=== PATIENT | female | born 1995 | race Caucasian/White ===

== ENCOUNTER → 2018-06-21 15:33 | Outpatient (CLI) | payer BC, SELFPAY ==
[2018-06-21 15:13] VITALS: BMI 50.6
[2018-06-21 16:12] LABS: Absolute Lymphocyte Count 4.94 X10^3/ul (0.83-4.51); Absolute Neutrophil Count 7.6 X10^3/uL (2.0-7.7); Basophil# 0.06 X10^3/uL; Basophil% 0.4 % (0-1); Eosinophil# 0.08 X10^3/uL; Eosinophils% 0.6 % (0-5); Hematocrit 43.2 % (37-47); Hemoglobin 13.5 g/dl (12.0-15.0); Lymphocyte # 4.94 X10^3/ul (4.0); Lymphocyte % 36.5 % (19-41); Mean Corp Hgb Conc 31.3 g/gl (32-36); Mean Corpuscular Hgb 28.5 pg (27.0-32.0); Mean Corpuscular Volume 91.3 fL (81-99); Mean Platelet Vol. 9.8 fl (6.2-12.0); Monocyte# 0.79 X10^3/uL; Monocyte% 5.8 % (0-10); Neutrophil # 7.62 X10^3/uL (2.7-7.7); Neutrophil % 56.3 % (47-70); Platelet Count 392 K/mm3 (150-450); RBC Distribution Width CV 14.5 % (11.6-14.6); RBC Distribution Width SD 47.4 fl (35.1-43.9); Red Blood Count 4.73 M/mm3 (4.2-5.4); White Blood Count 13.5 K/mm3 (4.4-11.0)
[2018-06-21 16:15] LABS: POSITIVE COUNT NO; POSITIVE DIFFERENTIAL NO; POSITIVE MORPHOLOGY NO
[2018-06-21 16:49] LABS: Thyroid Stim Hormone (TSH) 2.41 uIU/mL (0.358-3.74)
== END ==
PROVIDERS: Referring Provider Nurse Practitioner Women's Health; Visit Provider Nurse Practitioner Women's Health
DX: N92.1 Excessive and frequent menstruation with irregular cycle (principal)
CPT/HCPCS: 36415; 84443; 85025

== ENCOUNTER → 2018-06-27 11:17 | Outpatient (CLI) | payer BC, SELFPAY ==
[2018-06-21 15:13] VITALS: BMI 50.6
--- NOTE | 2018-06-27 11:19 | US_ITS ---
STUDY: ULTRASOUND TRANSVAGINAL CLINICAL: Female, 22 years old. Heavy bleeding TECHNIQUE: Transvaginal COMPARISON: None. FINDINGS: Normal uterine size measuring 7.5 cm in maximal craniocaudal dimension. There are no myometrial masses. Normal endometrial thickness measuring 4.7 mm. There are no endometrial masses, and there is no fluid in the endometrial cavity. Normal uterine cervix. Right ovary not visualized. Normal left ovary, measuring 3.1 x 1.9 x 2.2 cm. There are multiple follicles without a dominant cyst. There is minimal free fluid. US/Transvaginal Non- IMPRESSION: No suspicious sonographic findings, right ovary not visualized. Small amount of free fluid in the cul-de-sac Electronically Signed: Logan Roberto MD at 18:20 EDT , Service support ,
--- NOTE | 2018-06-27 11:19 | US_ITS ---
STUDY: ULTRASOUND TRANSVAGINAL CLINICAL: Female, 22 years old. Heavy bleeding TECHNIQUE: Transvaginal COMPARISON: None. FINDINGS: Normal uterine size measuring 7.5 cm in maximal craniocaudal dimension. There are no myometrial masses. Normal endometrial thickness measuring 4.7 mm. There are no endometrial masses, and there is no fluid in the endometrial cavity. Normal uterine cervix. Right ovary not visualized. Normal left ovary, measuring 3.1 x 1.9 x 2.2 cm. There are multiple follicles without a dominant cyst. There is minimal free fluid. US/Pelvic (Non ) IMPRESSION: No suspicious sonographic findings, right ovary not visualized. Small amount of free fluid in the cul-de-sac Electronically Signed: Logan Roberto MD at 18:20 EDT , Service support ,
== END ==
PROVIDERS: Referring Provider Nurse Practitioner Women's Health; Visit Provider Nurse Practitioner Women's Health
DX: N92.1 Excessive and frequent menstruation with irregular cycle (principal)
CPT/HCPCS: 76830; 76856; 93976

== ENCOUNTER → 2018-07-11 | Outpatient (CLI) | payer BC, SELFPAY ==
[2018-07-11 16:07] VITALS: BMI 50.6
[2018-07-11 20:34] LABS: Chlamydia Trachomatis by PCR Negative (Negative); Neisserai gonorrhoeae by PCR Negative (Negative); Probe Check PASS; Sample Adequacy Control PASS; Specimen Processing Control PASS
[2018-07-16 14:43] LABS: HPV Reflexed? NOT INDICATED
== END | disposition home or self-care (01) ==
PROVIDERS: Referring Provider Nurse Practitioner Women's Health; Visit Provider Nurse Practitioner Women's Health
DX: Z12.4 Encounter for screening for malignant neoplasm of cervix (principal); Z11.3 Encounter for screening for infections with a predominantly sexual mode of transmission
CPT/HCPCS: 87491; 87591; 87624; 88175; G0145

== ENCOUNTER → 2020-05-05 | Outpatient (CLI) | payer BC, MEDICAID, SELFPAY ==
[2020-05-05 10:25] VITALS: BMI 49.1
[2020-05-05 13:45] LABS: Amphetamine Urine VISTA NEGATIVE (<1000 ng/mL); Barbiturate Urine VISTA NEGATIVE (< 200 ng/mL); Benzodiazepine Urine VISTA NEGATIVE (< 200 ng/mL); Cocaine Urine VISTA NEGATIVE (< 300 ng/mL); Ecstacy Urine VISTA NEGATIVE (< 500 ng/mL); Methadone Urine VISTA NEGATIVE (< 300 ng/mL); PCP Urine VISTA NEGATIVE (< 25 ng/mL); THC Urine VISTA NEGATIVE (< 50 ng/mL); Vista UDS pH Range 6
== END | disposition home or self-care (01) ==
LOC: LABSPEC 12:08
PROVIDERS: Referring Provider Obstetrics & Gynecology; Visit Provider Obstetrics & Gynecology
DX: Z34.90 Encounter for supervision of normal pregnancy, unspecified, unspecified trimester (principal)
CPT/HCPCS: 80307; 87086; 87088; 87186

== ENCOUNTER → 2020-05-26 15:10 | Outpatient (CLI) | payer BC, MEDICAID, SELFPAY ==
[2020-05-05 10:25] VITALS: BMI 49.1
[2020-05-26 16:21] LABS: NATERA MAILED SPECIMEN
[2020-05-26 16:43] LABS: Absolute Lymphocyte Count 3.74 X10^3/uL (0.83-4.51); Basophil# 0.04 X10^3/uL; Basophil% 0.3 % (0-1); Eosinophil# 0.06 X10^3/uL; Eosinophils% 0.5 % (0-5); Hematocrit 38.5 % (37-47); Hemoglobin 12.5 g/dL (12.0-15.0); Lymphocyte # 3.74 X10^3/ul (4.0); Lymphocyte % 29.4 % (19-41); Mean Corp Hgb Conc 32.5 g/dL (32-36); Mean Corpuscular Hgb 28.5 pg (27.0-32.0); Mean Corpuscular Volume 87.7 fL (81-99); Mean Platelet Vol. 10.1 fl (6.2-12.0); Monocyte# 0.84 X10^3/uL; Monocyte% 6.6 % (0-10); NRBC Flagged by Analyzer 0 % (0-5); Neutrophil # 7.99 X10^3/uL (2.7-7.7); Neutrophil % 62.8 % (47-70); Platelet Count 355 K/mm3 (150-450); RBC Distribution Width CV 13.2 % (11.6-14.6); RBC Distribution Width SD 42.7 fl (35.1-43.9); Red Blood Count 4.39 M/mm3 (4.2-5.4); White Blood Count 12.7 K/mm3 (4.4-11.0)
[2020-05-26 17:06] LABS: Glucose Challenge Gest 1H 50g 85 mg/dL (70-140)
[2020-05-27 01:10] LABS: Rapid Plasmin Reagin (RPR) NONREACTIVE (NONREACTIVE)
[2020-05-27 10:11] LABS: HIV - WCH Non-Reactive (Nonreactive); Hepatitis B Surface Antigen Non-Reactive (Nonreactive); Hepatitis C Antibody Non-Reactive (Nonreactive); Rubella IgG Reactive (Nonreactive)
== END ==
PROVIDERS: Referring Provider Obstetrics & Gynecology; Visit Provider Obstetrics & Gynecology
DX: O99.210 Obesity complicating pregnancy, unspecified trimester (principal); E66.9 Obesity, unspecified; Z3A.00 Weeks of gestation of pregnancy not specified
CPT/HCPCS: 36415; 82950; 85025; 86592; 86703; 86762; 86803; 86850; 86900; 86901; 87340

== ENCOUNTER → 2020-06-02 | Outpatient (CLI) | payer BC, MEDICAID, SELFPAY ==
[2020-06-02 11:58] VITALS: BMI 49.8
== END | disposition home or self-care (01) ==
LOC: LABSPEC 16:32
PROVIDERS: Referring Provider Obstetrics & Gynecology; Visit Provider Obstetrics & Gynecology
DX: N89.8 Other specified noninflammatory disorders of vagina (principal)
CPT/HCPCS: 87070; 87205

== ENCOUNTER → 2020-06-15 | Outpatient (CLI) | payer BC, MEDICAID, SELFPAY ==
[2020-06-15 09:36] VITALS: BMI 50.5
[2020-06-17 03:07] LABS: Chlamydia By Nucleic Acid AMP Negative (Negative)
[2020-06-17 10:06] LABS: Gonococcus By Nucleic Acid AMP Negative (Negative)
== END | disposition home or self-care (01) ==
LOC: LABSPEC 12:19
PROVIDERS: Referring Provider Nurse Practitioner Women's Health; Visit Provider Nurse Practitioner Women's Health
DX: O23.40 Unspecified infection of urinary tract in pregnancy, unspecified trimester (principal); Z3A.00 Weeks of gestation of pregnancy not specified
CPT/HCPCS: 87086; 87088; 87491; 87591

== ENCOUNTER → 2020-06-17 15:26 | Outpatient (CLI) | payer BC, MEDICAID, SELFPAY ==
[2020-06-15 09:36] VITALS: BMI 50.5
[2020-06-17 16:42] LABS: NATERA MAILED SPECIMEN
== END ==
PROVIDERS: Referring Provider Nurse Practitioner Women's Health; Visit Provider Nurse Practitioner Women's Health
DX: O23.40 Unspecified infection of urinary tract in pregnancy, unspecified trimester (principal); Z3A.00 Weeks of gestation of pregnancy not specified
CPT/HCPCS: 36415

== ENCOUNTER → 2020-09-23 15:02 | Outpatient (CLI) | payer BC, MEDICAID, SELFPAY ==
[2020-09-23 14:35] VITALS: BMI 53.1
[2020-09-23 15:41] LABS: Absolute Lymphocyte Count 2.63 X10^3/uL (0.83-4.51); Absolute Neutrophil Count 9.6 X10^3/uL (2.0-7.7); Basophil# 0.02 X10^3/uL; Basophil% 0.2 % (0-1); Eosinophil# 0.05 X10^3/uL; Eosinophils% 0.4 % (0-5); Hemoglobin 12.6 g/dL (12.0-15.0); Lymphocyte # 2.63 X10^3/ul (0.83-4.51); Lymphocyte % 20.1 % (19-41); Mean Corp Hgb Conc 32.3 g/dL (32-36); Mean Corpuscular Hgb 28.9 pg (27.0-32.0); Mean Corpuscular Volume 89.4 fL (81-99); Mean Platelet Vol. 9.4 fl (6.2-12.0); Monocyte# 0.65 X10^3/uL; NRBC Flagged by Analyzer 0 % (0-5); Neutrophil # 9.63 X10^3/uL (2.7-7.7); Neutrophil % 73.7 % (47-70); Platelet Count 341 K/mm3 (150-450); RBC Distribution Width CV 13.5 % (11.6-14.6); RBC Distribution Width SD 43.9 fl (35.1-43.9); Red Blood Count 4.36 M/mm3 (4.2-5.4); White Blood Count 13.1 K/mm3 (4.4-11.0)
[2020-09-23 16:30] LABS: Glucose Challenge Gest 1H 50g 157 mg/dL (70-140)
== END ==
PROVIDERS: Visit Provider Nurse Practitioner Women's Health
DX: Z34.92 Encounter for supervision of normal pregnancy, unspecified, second trimester (principal); Z3A.24 24 weeks gestation of pregnancy
CPT/HCPCS: 36415; 82950; 85025

== ENCOUNTER → 2020-10-07 10:02 | Outpatient (CLI) | payer BC, MEDICAID, SELFPAY ==
[2020-09-23 14:35] VITALS: BMI 53.1
[2020-10-06 11:30] VITALS: BMI 55.7
[2020-10-07 10:49] LABS: Glucose GTT-Gestation. Fasting 95 mg/dL (<105)
[2020-10-07 13:05] LABS: Glucose GTT-Gestational 2 Hr 159 mg/dL (<165)
[2020-10-07 13:12] LABS: Glucose GTT-Gestational 1 Hr 155 mg/dL (<190)
[2020-10-07 13:48] LABS: Glucose GTT-Gestational 3 Hr 128 L (<145)
== END ==
PROVIDERS: Referring Provider Nurse Practitioner Women's Health; Visit Provider Nurse Practitioner Women's Health
DX: Z13.1 Encounter for screening for diabetes mellitus (principal)
CPT/HCPCS: 36415; 82951; 82952

== ENCOUNTER → 2020-11-03 11:47 | Outpatient (CLI) | payer BC, MEDICAID, SELFPAY ==
[2020-11-03 10:59] VITALS: BMI 55.7
[2020-11-03 12:31] LABS: Absolute Lymphocyte Count 2.49 X10^3/uL (0.83-4.51); Absolute Neutrophil Count 8.3 X10^3/uL (2.0-7.7); Basophil# 0.02 X10^3/uL; Basophil% 0.2 % (0-1); Eosinophil# 0.03 X10^3/uL; Eosinophils% 0.3 % (0-5); Hematocrit 36.8 % (37-47); Hemoglobin 12.1 g/dL (12.0-15.0); Lymphocyte # 2.49 X10^3/ul (0.83-4.51); Lymphocyte % 21.9 % (19-41); Mean Corp Hgb Conc 32.9 g/dL (32-36); Mean Corpuscular Hgb 28.3 pg (27.0-32.0); Mean Platelet Vol. 10.6 fl (6.2-12.0); Monocyte# 0.52 X10^3/uL; Monocyte% 4.6 % (0-10); NRBC Flagged by Analyzer 0 % (0-5); Neutrophil # 8.26 X10^3/uL (2.7-7.7); Neutrophil % 72.6 % (47-70); Platelet Count 314 K/mm3 (150-450); RBC Distribution Width CV 13.9 % (11.6-14.6); RBC Distribution Width SD 42.9 fl (35.1-43.9); Red Blood Count 4.28 M/mm3 (4.2-5.4); White Blood Count 11.4 K/mm3 (4.4-11.0)
[2020-11-03 13:00] LABS: ALB/GLOB Ratio 0.5 RATIO (0.9-2.4); AST(SGOT) 11 U/L (15-37); Alanine Aminotransfer ALT/SGPT 15 U/L (13-56); Albumin, Serum 2.3 g/dL (3.2-5.0); Alkaline Phosphatase 129 U/L (45-117); Anion Gap 8 (5-15); BUN 6 mg/dL (7-18); BUN/Creat Ratio 13.1 RATIO (10-20); Chloride 107 mmol/L (98-107); Creatinine, Serum 0.46 mg/dL (0.55-1.02); EST Glomerular Filtration Rate 177 mL/min (>60); Est Glom Filt Rate - Afr Amer 215 mL/min (>60); Globulin 4.6 g/dL (2.2-4.2); Glucose 111 mg/dL (74-106); Protein, Total 6.9 g/dL (6.4-8.2); Sodium Level 139 mmol/L (136-145)
[2020-11-03 15:21] LABS: Protein, Urine (Random) 19.6 mg/dL (<11.9); Protein:Creat Ratio 151 mg/g CRE (0-200)
== END ==
PROVIDERS: Referring Provider Obstetrics & Gynecology; Visit Provider Obstetrics & Gynecology
DX: O16.3 Unspecified maternal hypertension, third trimester (principal); Z3A.00 Weeks of gestation of pregnancy not specified
CPT/HCPCS: 36415; 80053; 82570; 84156; 85025

== ENCOUNTER → 2020-11-10 14:10 | Outpatient (CLI) | payer BC, MEDICAID, SELFPAY ==
[2020-11-10 13:13] VITALS: BMI 55.7
[2020-11-10 15:35] LABS: Protein, Urine (Random) 23.3 mg/dL (<11.9); Protein:Creat Ratio 133 mg/g CRE (0-200)
[2020-11-10 15:48] LABS: Absolute Lymphocyte Count 3.21 X10^3/uL (0.83-4.51); Absolute Neutrophil Count 10.1 X10^3/uL (2.0-7.7); Basophil# 0.03 X10^3/uL; Basophil% 0.2 % (0-1); Eosinophil# 0.04 X10^3/uL; Eosinophils% 0.3 % (0-5); Hematocrit 37.9 % (37-47); Hemoglobin 12.2 g/dL (12.0-15.0); Lymphocyte # 3.21 X10^3/ul (0.83-4.51); Lymphocyte % 22.8 % (19-41); Mean Corp Hgb Conc 32.2 g/dL (32-36); Mean Corpuscular Volume 87.1 fL (81-99); Monocyte# 0.62 X10^3/uL; Monocyte% 4.4 % (0-10); NRBC Flagged by Analyzer 0 % (0-5); Neutrophil # 10.12 X10^3/uL (2.7-7.7); Neutrophil % 71.7 % (47-70); Platelet Count 313 K/mm3 (150-450); RBC Distribution Width CV 14.1 % (11.6-14.6); RBC Distribution Width SD 44.4 fl (35.1-43.9); Red Blood Count 4.35 M/mm3 (4.2-5.4); White Blood Count 14.1 K/mm3 (4.4-11.0)
[2020-11-10 16:21] LABS: ALB/GLOB Ratio 0.5 RATIO (0.9-2.4); AST(SGOT) 14 U/L (15-37); Alanine Aminotransfer ALT/SGPT 18 U/L (13-56); Albumin, Serum 2.4 g/dL (3.2-5.0); Alkaline Phosphatase 136 U/L (45-117); Anion Gap 7 (5-15); BUN 8 mg/dL (7-18); BUN/Creat Ratio 18.4 RATIO (10-20); Calcium,Total 9.3 mg/dL (8.5-10.1); Chloride 106 mmol/L (98-107); Creatinine, Serum 0.43 mg/dL (0.55-1.02); EST Glomerular Filtration Rate 189 mL/min (>60); Est Glom Filt Rate - Afr Amer 229 mL/min (>60); Globulin 4.7 g/dL (2.2-4.2); Glucose 87 mg/dL (74-106); Potassium 4.1 mmol/L (3.5-5.1); Protein, Total 7.1 g/dL (6.4-8.2); Sodium Level 137 mmol/L (136-145)
== END ==
PROVIDERS: Referring Provider Nurse Practitioner Women's Health; Visit Provider Nurse Practitioner Women's Health
DX: O16.3 Unspecified maternal hypertension, third trimester (principal); Z3A.00 Weeks of gestation of pregnancy not specified
CPT/HCPCS: 36415; 80053; 82570; 84156; 85025

== ENCOUNTER → 2020-11-17 | Outpatient (CLI) | payer BC, MEDICAID, SELFPAY ==
[2020-11-17 11:28] VITALS: BMI 55.7
== END | disposition home or self-care (01) ==
PROVIDERS: Visit Provider Obstetrics & Gynecology
DX: Z34.02 Encounter for supervision of normal first pregnancy, second trimester (principal)
CPT/HCPCS: 87081

== ENCOUNTER 2020-11-24 12:05 | Outpatient (CLI) | payer BC, MEDICAID, SELFPAY ==
[2020-11-24 12:17] VITALS: BMI 57.2
[2020-11-24 12:24] VITALS: BP 129/77; PULSE 90; TEMP 37.4
[2020-11-24 12:42] VITALS: BP 138/72; PULSE 92
[2020-11-24 12:54] VITALS: BP 149/72; PULSE 104
[2020-11-24 12:55] LABS: Hematocrit 35.5 % (37-47); Hemoglobin 11.6 g/dL (12.0-15.0); Mean Corp Hgb Conc 32.7 g/dL (32-36); Mean Corpuscular Hgb 28.2 pg (27.0-32.0); Mean Corpuscular Volume 86.4 fL (81-99); Mean Platelet Vol. 11.3 fl (6.2-12.0); Platelet Count 293 K/mm3 (150-450); RBC Distribution Width CV 14.1 % (11.6-14.6); RBC Distribution Width SD 44.3 fl (35.1-43.9); Red Blood Count 4.11 M/mm3 (4.2-5.4); White Blood Count 15.7 K/mm3 (4.4-11.0)
[2020-11-24 13:07] LABS: AST(SGOT) 14 U/L (15-37); Alanine Aminotransfer ALT/SGPT 19 U/L (13-56); Creatinine, Serum 0.48 mg/dL (0.55-1.02); EST Glomerular Filtration Rate 169 mL/min (>60); Est Glom Filt Rate - Afr Amer 204 mL/min (>60); Estimated Creatinine Clearance 156.06 ml/min; Uric Acid 5.5 mg/dL (2.6-6.0)
[2020-11-24 13:09] VITALS: BP 137/72; PULSE 100
[2020-11-24 13:25] VITALS: BP 134/80; PULSE 93
[2020-11-24 13:25] LABS: Protein, Urine (Random) 27.4 mg/dL (<11.9); Protein:Creat Ratio 130 mg/g CRE (0-200)
--- NOTE | 2020-11-25 13:21 | OB.TRI.PN ---
Progress Notes Date of Service: 11/24/20 Progress Note: Patient presents for triage evaluation secondary to elevated BP. BPs normotensive aside from isolated mild range. PreE labs normal. FHT: Moderate variability reactive no decelerations category I tracing [place]: No Contractions Assessment and plan: Reactive NST, reassuring maternal and status patient discharged to home to follow-up in office for BP check on Sunday. See problem list details for additional plan information. Laboratory Studies: Laboratory Tests 11/24/20 11/24/20 11/24/20 Range/Units 12:40 12:40 12:40 WBC 15.7 H (4.4-11.0) K/mm3 RBC 4.11 L (4.2-5.4) M/mm3 Hgb 11.6 L (12.0-15.0) g/dL Hct 35.5 L (37-47) % MCV 86.4 (81-99) fL MCH 28.2 (27.0-32.0) pg MCHC 32.7 (32-36) g/dL RDW Std Deviation 44.3 H (35.1-43.9) fl RDW Coeff of Kiarra 14.1 (11.6-14.6) % Plt Count 293 (150-450) K/mm3 MPV 11.3 (6.2-12.0) fl Creatinine 0.48 L (0.55-1.02) mg/dL Estim Creat Clear Calc 156.06 ml/min Est GFR (MDRD) Af Amer 204 (>60) mL/min Est GFR (MDRD) Non-Af 169 (>60) mL/min Uric Acid 5.5 (2.6-6.0) mg/dL AST 14 L (15-37) U/L ALT 19 (13-56) U/L U Random Total Protein 27.4 H (<11.9) mg/dL Urine Creatinine 210.00 (NO RANGE EST.) mg/dL Protein/Creatinin Ratio 130 (0-200) mg/g CRE Charges/Coding Procedures Urinary/Genital 52xxx-59xxx: [id number] non-stress test Interp
== END 2020-11-24 13:57 | disposition home or self-care (01) ==
LOC: WPOUT 12:11 → WP 12:11
PROVIDERS: Visit Provider Obstetrics & Gynecology
DX: O99.891 Other specified diseases and conditions complicating pregnancy (principal); R03.0 Elevated blood-pressure reading, without diagnosis of hypertension; Z3A.00 Weeks of gestation of pregnancy not specified
CPT/HCPCS: 36415; 59025; 59050; 82565; 82570; 84156; 84450; 84460; 84550; 85027; 99218; G0378

== ENCOUNTER 2020-11-26 10:50 | Outpatient (CLI) | payer BC, MEDICAID, SELFPAY ==
[2020-11-26] VITALS (7 sets, daily range): BP systolic 131–138; BP diastolic 74–80; PULSE 95–115; TEMP 36.6; O2SAT 97; BMI 59.1
[2020-11-26 11:22] LABS: Hematocrit 37.6 % (37-47); Hemoglobin 12.5 g/dL (12.0-15.0); Mean Corp Hgb Conc 33.2 g/dL (32-36); Mean Corpuscular Hgb 28.8 pg (27.0-32.0); Mean Corpuscular Volume 86.6 fL (81-99); Mean Platelet Vol. 11.3 fl (6.2-12.0); Platelet Count 286 K/mm3 (150-450); RBC Distribution Width SD 44.1 fl (35.1-43.9); Red Blood Count 4.34 M/mm3 (4.2-5.4); White Blood Count 13.8 K/mm3 (4.4-11.0)
[2020-11-26 11:39] LABS: ALB/GLOB Ratio 0.5 RATIO (0.9-2.4); AST(SGOT) 13 U/L (15-37); Alanine Aminotransfer ALT/SGPT 18 U/L (13-56); Albumin, Serum 2.5 g/dL (3.2-5.0); Alkaline Phosphatase 157 U/L (45-117); Anion Gap 7 (5-15); BUN 9 mg/dL (7-18); BUN/Creat Ratio 17.8 RATIO (10-20); Chloride 109 mmol/L (98-107); EST Glomerular Filtration Rate 159 mL/min (>60); Est Glom Filt Rate - Afr Amer 192 mL/min (>60); Estimated Creatinine Clearance 143.52 ml/min; Globulin 4.8 g/dL (2.2-4.2); Glucose 105 mg/dL (74-106); Potassium 4.2 mmol/L (3.5-5.1); Protein, Total 7.3 g/dL (6.4-8.2); Sodium Level 138 mmol/L (136-145)
[2020-11-26 12:12] LABS: Protein, Urine (Random) 35.3 mg/dL (<11.9); Protein:Creat Ratio 126 mg/g CRE (0-200)
--- NOTE | 2020-11-26 15:53 | OB.TRI.PN_ITS ---
Progress Notes Date of Service: 11/26/20 Progress Note: Patient presents for triage evaluation secondary to elevated BP in office. All BPs normal in triage. Asymptomatic. PreE labs normal. FHT: Moderate variability reactive no decelerations category I tracing [place]: No Contractions Assessment and plan: Reactive NST, reassuring maternal and status patient discharged to home to follow-up at next visit. See problem list details for additional plan information. Laboratory Studies: Laboratory Tests 11/26/20 11/26/20 11/26/20 Range/Units Unknown 11:10 11:10 WBC 13.8 H (4.4-11.0) K/mm3 RBC 4.34 (4.2-5.4) M/mm3 Hgb 12.5 (12.0-15.0) g/dL Hct 37.6 (37-47) % MCV 86.6 (81-99) fL MCH 28.8 (27.0-32.0) pg MCHC 33.2 (32-36) g/dL RDW Std Deviation 44.1 H (35.1-43.9) fl RDW Coeff of Kiarra 14.0 (11.6-14.6) % Plt Count 286 (150-450) K/mm3 MPV 11.3 (6.2-12.0) fl Sodium 138 (136-145) mmol/L Potassium 4.2 (3.5-5.1) mmol/L Chloride 109 H (98-107) mmol/L Carbon Dioxide 22.0 (21.0-32.0) mmol/L Anion Gap 7 (5-15) BUN 9 (7-18) mg/dL Creatinine 0.50 L (0.55-1.02) mg/dL Estim Creat Clear Calc 143.52 ml/min Est GFR (MDRD) Af Amer 192 (>60) mL/min Est GFR (MDRD) Non-Af 159 (>60) mL/min BUN/Creatinine Ratio 17.8 (10-20) RATIO Glucose 105 (74-106) mg/dL Calcium 9.0 (8.5-10.1) mg/dL Total Bilirubin 0.30 (0.20-1.00) mg/dL AST 13 L (15-37) U/L ALT 18 (13-56) U/L Alkaline Phosphatase 157 H (45-117) U/L Total Protein 7.3 (6.4-8.2) g/dL Albumin 2.5 L (3.2-5.0) g/dL Globulin 4.8 H (2.2-4.2) g/dL Albumin/Globulin Ratio 0.5 L (0.9-2.4) RATIO U Random Total Protein 35.3 H (<11.9) mg/dL Urine Creatinine 281.00 (NO RANGE EST.) mg/dL Protein/Creatinin Ratio 126 (0-200) mg/g CRE Charges/Coding Procedures Urinary/Genital 52xxx-59xxx: [id number] non-stress test Interp
== END 2020-11-26 12:35 | disposition home or self-care (01) ==
LOC: WPOUT 11:05 → WP 11:06
PROVIDERS: Referring Provider Obstetrics & Gynecology; Visit Provider Obstetrics & Gynecology
DX: O99.891 Other specified diseases and conditions complicating pregnancy (principal); R03.0 Elevated blood-pressure reading, without diagnosis of hypertension; Z3A.00 Weeks of gestation of pregnancy not specified
CPT/HCPCS: 36415; 59025; 59050; 80053; 82570; 84156; 85027; 99218; G0378

== ENCOUNTER 2020-12-01 12:35 | Inpatient (IN) | payer BC, MEDICAID, SELFPAY ==
[2020-12-01] VITALS (44 sets, daily range): BP systolic 121–162; BP diastolic 73–94; PULSE 78–111; RESP 16–20; TEMP 36.1–36.9; O2SAT 96–100; BMI 58.9
[2020-12-01 12:20] LABS: Hematocrit 39.8 % (37-47); Hemoglobin 12.8 g/dL (12.0-15.0); Mean Corp Hgb Conc 32.2 g/dL (32-36); Mean Corpuscular Volume 87.1 fL (81-99); Mean Platelet Vol. 11.7 fl (6.2-12.0); Platelet Count 299 K/mm3 (150-450); RBC Distribution Width CV 14.1 % (11.6-14.6); RBC Distribution Width SD 44.3 fl (35.1-43.9); Red Blood Count 4.57 M/mm3 (4.2-5.4); White Blood Count 14.5 K/mm3 (4.4-11.0)
[2020-12-01 12:37] LABS: AST(SGOT) 14 U/L (15-37); Alanine Aminotransfer ALT/SGPT 18 U/L (13-56); Creatinine, Serum 0.52 mg/dL (0.55-1.02); EST Glomerular Filtration Rate 154 mL/min (>60); Est Glom Filt Rate - Afr Amer 187 mL/min (>60); Uric Acid 4.8 mg/dL (2.6-6.0)
--- NOTE | 2020-12-01 13:08 | HP.PCM.OB_ITS ---
HPI - General General Date of Admission: 12/01/20 HPI Narrative WILLIAM EDWARDS, is a 25 F at 38/2 who presents for elevated BPs. Has had persistently elevated BPs in office since 35w, but previously normalized in triage. BP intermittently elevated in triage last week and again today. Plan IOL for gHTN. Maternal Data Information HUMA Calculator Estimated Delivery Date Method Current WG Current Estimate 12/13/20 LMP (Certain) 38w 2d PFSH PFSH Medical History (Updated 12/01/20 @ 13:[address] Petrona Thompson MD) Anxiety Home Medications albuterol sulfate 90 mcg/actuation aerosol inhaler 1 inh INHALATION ONCE PRN 11/26/19 [History Last Taken Unknown] multivitamin no.47-iron fum 27 mg-folate no.1 1 mg-dha 300 mg capsule 1 cap PO DAILY 04/27/20 [History Last Taken 12/01/20 08:00] promethazine 12.5 mg tablet 12.5 mg PO TID PRN #30 tab 04/27/20 [Rx Last Taken Unknown] ondansetron HCl 4 mg tablet 4 mg PO Q8H PRN #60 tab 07/28/20 [Rx Last Taken Unknown] cetirizine 10 mg PO DAILY 11/24/20 [History Last Taken 12/01/20 08:00] Allergy/AdvReac Type Severity Reaction Status Date / Time No Known Allergies Allergy Verified 12/01/20 12:14 Family History Mother Cancer Surgical History H/O oral surgery Social History household members: significant other Smoking Status: Never smoker alcohol intake: never substance use type: does not use caffeine: Yes what type of physical activity do you participate in: walking seatbelt use: always do you feel safe at home: Yes additional social history: works at [employer] in [place] BF- TJ History 1 Elective abortions Hx Para 0 Spontaneous abortions Hx # Term Pregnancies Ectopic pregnancies Hx # Pregnancies Multiple births # of living children Visit Details Expected Delivery Route/Plan Labor Preferences- CB/BF classes: encouraged labor support person: LANCE labor intervention preferences: pain management options preferred: would consider epidural, but wants limited cut cord/dad catch: yes : maybe PP control planned: discussed discussed possible routes of delivery and associated risks: [] special requests: [] Plans flu vaccine: no tdap vaccine: given rhogam: na LARC form signed: yes Problem list reviewed and updated with the most current plan of care details and appropriate orders placed. Relevant counseling for the gestational age provided. Continue routine care and follow up unless otherwise noted in visit notes/problem list details OB Flowsheet Initial Weight: 281 lb Date -?-?-?-?-?-?-?-?-?-?-?-?- EGA Weight BP Urine Prot -?-?-?-?-?-?-?-?-?-?-?-?- Glucose FHR FuHt Pres Dilation -?-?-?-?-?-?-?-?-?-?-?-?- Effaced St Visit Note 05/05/20 -?-?-?-?-?-?-?-?-?-?-?-?- 8w 2d 281 lb 8 oz (+8 oz) 124/72 -?-?-?-?-?-?-?-?-?-?-?-?- 160 -?-?-?-?-?-?-?-?--?-?-?-?- GP - CRL 15mm co nsistent with LMP 06/02/20 -?-?-?-?-?-?-?-?-?-?-?-?- 12w 2d 285 lb 8 oz (+4 lb 8 oz) 110/74 -?-?-?-?-?-?-?-?-?-?-?-?- 160 -?-?-?-?-?-?-?-?-?-?-?-?- GP - no cramping or bleeding. Awaiting NIPT results. PRR. 06/15/20 -?-?-?-?-?-?-?-?-?-?-?-?- 14w 1d 290 lb 2 oz (+9 lb 2 oz) 118/76 Negative -?-?-?-?-?-?-?-?-?-?-?-?- Negative 160 0 -?-?-?-?-?-?-?-?-?-?-?-?- MH-work in small amount brown discharge last pm, less this am, Mild cramping. Small amount light brown dc in vagina. GCC collected. Rpt urine culture. Brief US confirm active IUP. Reviewed bleeding precautions. 06/30/20 -?-?-?-?-?-?-?-?-?-?-?-?- 16w 2d 295 lb 8 oz (+14 lb 8 oz) 118/70 Trace -?-?-?-?-?-?-?-?-?-?-?-?- Negative 153 -?-?-?-?-?-?-?-?-?-?-?-?- MH-no VB, LOF. NO FM yet. MFM anatomy US scheduled. Plans 2 wk trip to [place] next week. Flying precautions reviewed. Declines AFP 07/28/20 -?-?-?-?-?-?-?-?-?-?-?-?- 20w 2d 305 lb (+24 lb) 114/80 Negative -?-?-?-?-?-?-?-?-?-?-?-?- Negative 140 -?-?-?-?--?-?-?-?-?-?-?-?- GP - no cramping , LOF, VB, DFM, ctx. Anatomy done on Sunday - awaiting results. 08/26/20 -?-?-?-?-?-?-?-?-?-?-?-?- 24w 3d 310 lb (+29 lb) 120/84 Negative -?-?-?-?-?-?-?-?-?-?-?-?- Negative 140 -?-?-?-?-?-?-?-?-?-?-?-?- SM- n ovb craaryani merrill, failed to get adequate cardiac views. 09/23/20 -?-?-?-?-?-?-?-?-?-?-?-?- 28w 3d 320 lb (+39 lb) 138/76 Trace -?-?-?-?-?-?-?-?-?-?-?-?- Negative 146 29 -?-?-?-?-?-?-?-?-?-?-?-?- MH-No VB, LOF. G ood FM. Discussed bilat club foot. Has talked to ortho. Sees MFM with US Q4w. 28 wk labs, tdap, larc. 10/06/20 -?-?-?-?-?--?-?-?-?-?-?-?- 30w 2d 319 lb 8 oz (+38 lb 8 oz) 122/82 -?-?-?-?-?-?-?-?-?-?-?-?- 125 30 -?-?-?-?-?-?-?-?-?-?-?-?- GP - no LOF, VB, DFM, ctx. Given work letter stating not to climb on ladders. 10/20/20 -?-?-?-?-?-?-?-?-?-?-?-?- 32w 2d 325 lb 6 oz (+44 lb 6 oz) 120/72 Trace -?-?-?-?-?-?-?-?-?-?-?-?- Negative 130 32 -?-?-?-?-?-?-?-?-?-?-?-?- GP -no LOF, VB, DFM, ctx. Discussed logic behind NSTs in setting of obesity. 10/27/20 -?-?-?-?-?-?-?-?-?-?-?-?- 33w 2d 328 lb (+47 lb) 118/88 Negative -?-?-?-?-?-?-?-?-?-?-?-?- Negative 140 -?-?-?-?-?-?-?-?-?-?-?-?- -NST only reac tive 11/03/20 -?-?-?-?-?-?-?-?-?-?-?-?- 34w 2d 330 lb 2 oz (+49 lb 2 oz) 118/92 -?-?-?-?-?-?-?-?-?-?-?-?- 140 34 -?-?-?-?-?-?-?-?-?-?-?-?- GP - no LOF, VB, dFM, ctx. Asymptomatic. BP mildly elevated - PreE labs ordered. 11/10/20 -?-?-?-?-?-?-?-?-?-?-?-?- 35w 2d 333 lb 6 oz (+52 lb 6 oz) 138/90 Negative -?-?-?-?-?-?-?-?-?-?-?-?- Negative 130 -?-?--?-?-?-?-?-?-?-?-?-?- GP - NST only. B P elevated but asymptomatic. Labs ordered. NST reactive 11/17/20 -?-?-?-?-?-?-?-?-?-?-?-?- 36w 2d 332 lb 6 oz (+51 lb 6 oz) 124/86 -?-?-?-?-?-?-?-?-?-?-?-?- 140 36 -?-?-?-?-?-?-?-?-?-?-?-?- GP - no LOF, VB, DFM, ctx. Initial BP elevated but nl repeat. GBS done today GP - no LOF, VB, DFM, ctx. I nitial BP elevated but nl repeat. GBS done today. Getting at [facility] on 11/2611/24/20 -?-?-?-?-?-?-?-?-?-?-?-?- 37w 2d 335 lb 2 oz (+54 lb 2 oz) 134/90 Trace -?-?-?-?-?-?-?-?-?-?-?-?- Negative 135 -?-?-?-?-?-?-?-?-?-?-?-?- GP - no LOF, VB, dFM, ctx. Denies ANDRE, VC, chest pain. BP elevated with trace proteinuria - sent to triage for eval 11/26/20 -?-?-?-?-?-?-?-?-?-?-?-?- 37w 4d 334 lb (+53 lb) 144/90 1+ -?-?-?-?-?-?-?-?-?-?-?-?- Negative -?-?-?-?-?-?-?-?-?-?-?-?- GP - nurse visit for BP check. BP elevated. Sent to triage for eval. 12/01/20 -?-?-?-?-?-?-?-?-?-?-?-?- 38w 2d 334 lb 2 oz (+53 lb 2 oz) 142/100 Trace -?-?-?-?-?-?-?-?-?-?-?-?- Negative -?-?-?-?-?-?-?-?-?-?-?-?- GP - BP again el evated in office. Has been elevated since 35w. Sent to triage for monitoring and likely IOL. 12/01/20 -?-?-?-?-?-?-?-?-?-?-?-?- 38w 2d 332 lb 10.841 oz (+51 lb 10.841 oz) 137/87 136/82 135/83 144/84 -?-?-?-?-?-?-?-?-?-?-?-?- -?-?-?-?-?-?-?-?-?-?-?-?- NST FHR Rate Baby A Baseline: 150 Variability:: Moderate Accelerations:: 15 x 15 Decelerations:: None NST Reactive:: Yes FHR Category:: Category I Uterine Activity:: none ROS Eyes Eyes: Reports systems reviewed and no addt'l complaints, except as documented ENT HEENT: Reports systems reviewed and no addt'l complaints, except as documented Cardiovascular Cardiovascular: Reports systems reviewed and no addt'l complaints, except as documented Respiratory/Chest Respiratory/Chest: Reports systems reviewed and no addt'l complaints, except as documented Gastrointestinal Gastrointestinal: Reports systems reviewed and no addt'l complaints, except as documented Genitourinary Genitourinary: Reports systems reviewed and no addt'l complaints, except as documented Musculoskeletal Musculoskeletal: Reports systems reviewed and no addt'l complaints, except as documented Integumentary Integumentary: Reports systems reviewed and no addt'l complaints, except as documented Neurologic Neurologic: Reports systems reviewed and no addt'l complaints, except as documented Psychiatric Psychiatric: Reports systems reviewed and no addt'l complaints, except as documented Endocrine Endocrinology: Reports systems reviewed and no addt'l complaints, except as documented Hematologic/Lymphatic Hematologic/Lymphatic: Reports systems reviewed and no addt'l complaints, except as documented Allergic/Immunologic Allergic/Immunologic: Reports systems reviewed and no addt'l complaints, except as documented Vital Signs Vital Signs Vital Signs: 12/01/20 12:09 12/01/20 12:25 12/01/20 12:39 Temperature 97.0 F L Temperature Source Temporal Pulse Rate 111 H 105 H 111 H Blood Pressure 137/87 H 136/82 H 135/83 H BP Systolic 137 136 135 BP Diastolic 87 82 83 Pulse Ox 97 12/01/20 12:55 Temperature Temperature Source Pulse Rate 109 H Blood Pressure 144/84 H BP Systolic 144 BP Diastolic 84 Pulse Ox Weight Weight: 332 lb 10.841 oz Body Mass Index (BMI) 58.9 Physical Exam Const alert, oriented x3, no apparent distress, average body habitus, healthy appearing and well nourished HEENT normocephalic and moist oral mucous membranes Head and Scalp: atraumatic Eyes PERRL and EOMs intact bilaterally Neck full ROM Resp normal respiratory effort, no retractions and no use of accessory muscles Cardio regular rate and regular rhythm GI soft to palpation, non-tender and non-distended Extremity normal to inspection and full ROM Skin no rashes or lesions noted Neuro no focal motor deficits and no sensory deficits noted Psych mental status grossly normal, affect normal, speech normal and activity/motor behavior normal Labs Labs Labs: Blood Type O POSITIVE Antibody Screen NEGATIVE Hct 39.8 % (37-47) Hgb 12.8 g/dL (12.0-15.0) Rubella IgG Antibody Reactive (Nonreactive) Hep Bs Antigen Non-Reactive (Nonreactive) Neisseria gonorrhoeae DNA ([place]) Negative (Negative) HIV 1&2 Antibody Non-Reactive (Nonreactive) C.trachomatis DNA (PCR) Negative (Negative) Glucose 1 Hr 50 gm 157 mg/dL (70-140) H Assessment & Plan (1) Gestational hypertension: QUALIFIERS: Trimester: third trimester Qualified Code(s): O13.3 - Gestational [-induced] hypertension without significant proteinuria, third trimester PLAN: Patient with persistently elevated BPs in office with intermittently elevated BPs in triage Admit for induction of labor (2) Club foot, , affecting care of mother, antepartum: COMMENT: B/L clubbed footing- refer to ortho (3) UTI (urinary tract infection), affecting care of mother, antepartum: COMMENT: tx 05/06 with keflex- 06/15 rpt neg (4) Supervision of normal : QUALIFIERS: Normal : normal first Trimester: second trimester Qualified Code(s): Z34.02 - Encounter for supervision of normal first , second trimester COMMENT: PRR HUMA: 12/13/20 Boy BF: TJ (5) : QUALIFIERS: Weeks of gestation: 38 weeks Qualified Code(s): Z3A.38 - 38 weeks gestation of COMMENT: NIPT- low risk boy. carrier neg. ; GBS NEG (6) Morbid obesity: COMMENT: BMI 49. Early 1h GCT NL. Discussed healthy weight gain. 28wk 1 hr glucose elevated, 3 hr ordered and nl, nl growth 09/30 (7) Encounter for induction of labor: PLAN: Patient presents IOL for Gestational hypertension, plan management for with cytotec. Pain management: open to epidural. GBS negative. Management of any complications: none I have reviewed the [facility] and made any clinically relevant updates.
[2020-12-01] MEDS: 0.9% Saline Lock 10 ML Syringe IV ×2 (13:18→19:52)
[2020-12-01 14:02] LABS: Protein, Urine (Random) 46.3 mg/dL (<11.9); Protein:Creat Ratio 116 mg/g CRE (0-200)
[2020-12-01] MEDS: miSOPROStol 25 MCG TABLET PO (15:12)
[2020-12-01] MEDS: Labetalol (Prefilled) 20 MG/4 ML IV (19:50)
[2020-12-01] MEDS: Magnesium Sulfate 4gm/100mL 4 GM/100 ML IV.SOLN. IV (19:53)
[2020-12-01] MEDS: Magnesium Sulfate 4gm/100mL 2 GM/50 ML IV.SOLN. IV (20:13)
[2020-12-01] MEDS: Magnesium Sulfate 20 GM/500 ML BAG IV (20:25)
[2020-12-01] MEDS: NIFEdipine 30 MG Tablet PO (20:40)
[2020-12-01] MEDS: miSOPROStol 50 MCG TABLET VAGINAL (21:55)
[2020-12-01] MEDS: Acetaminophen 500 MG Tablet PO (23:20)
[2020-12-02] VITALS (89 sets, daily range): BP systolic 105–155; BP diastolic 51–102; PULSE 82–110; RESP 14–26; TEMP 36–37.2; O2SAT 95–100
[2020-12-02] MEDS: Ondansetron 4 MG/2 ML Vial IV ×3 (00:27→20:06)
[2020-12-02] MEDS: 0.9% Normal Saline Single 100 ML IV.SOLN. INTRA-UTER (00:56)
--- NOTE | 2020-12-02 01:00 | PCM.PN.BLA ---
Progress Note Patient seen and examined. Blood pressures stable on Procardia XL 30 mg. Patient on mag. Asymptomatic. Patient status post second dose of Cytotec at 10 PM. Hui bulb placed at this time without difficulty. Spontaneous rupture of membranes occurred with Hui bulb placement. heart rate tracing category 1. Occasional contractions but not uncomfortable. Discussed can get epidural whenever she would like.
[2020-12-02] MEDS: Lactated Ringers 500 ML 999 ML IV (01:40)
[2020-12-02] MEDS: Lactated Ringers 1,000 ML 50 ML IV (02:11)
[2020-12-02] MEDS: fentaNYL 100 MCG/2 ML Ampul IV (02:43)
[2020-12-02] MEDS: Metoclopramide 10 MG Tablet PO (02:44)
[2020-12-02] MEDS: fentaNYL-bupivacaine (epidural) 100 ML BAG EPIDURAL ×3 (03:57→12:38)
[2020-12-02] MEDS: Magnesium Sulfate 20 GM/500 ML BAG IV ×2 (05:59→16:05)
[2020-12-02] MEDS: 0.9% Saline Lock 10 ML Syringe IV (07:00)
[2020-12-02] MEDS: Oxytocin 30 units/NS 500 ml 30 UNITS/500 ML IV.SOLN IV (07:34)
--- NOTE | 2020-12-02 17:22 | NURSING ---
Full assessment not completed due to patient pushing.
[2020-12-02] MEDS: Oxytocin 30 units/NS 500 ml 30 UNITS/500 ML IV.SOLN 334 UNITS IV (17:40)
--- NOTE | 2020-12-02 18:04 | EX.PCM.OBRPT ---
Assessment & Plan (1) Outlet forceps delivery: COMMENT: GP IOL PreEwSF FAVD Boy- (2) Morbid obesity: COMMENT: BMI 49. Early 1h GCT NL. Discussed healthy weight gain. 28wk 1 hr glucose elevated, 3 hr ordered and nl, nl growth 09/30 (3) : QUALIFIERS: Weeks of gestation: 38 weeks Qualified Code(s): Z3A.38 - 38 weeks gestation of COMMENT: NIPT- low risk boy. carrier neg. ; GBS NEG (4) Supervision of normal : QUALIFIERS: Normal : normal first Trimester: second trimester Qualified Code(s): Z34.02 - Encounter for supervision of normal first , second trimester COMMENT: PRR HUMA: 12/13/20 Boy BF: TJ (5) UTI (urinary tract infection), affecting care of mother, antepartum: COMMENT: tx 05/06 with keflex- 06/15 rpt neg (6) Club foot, , affecting care of mother, antepartum: COMMENT: B/L clubbed footing- refer to ortho (7) Encounter for induction of labor: (8) Pre-eclampsia: Maternal Data Information HUMA Calculator Estimated Delivery Date Method Current WG Current Estimate 12/13/20 LMP (Certain) 38w 3d Vaginal Delivery Maternal Presentation Maternal Presentation: Medically Indicated Induction Maternal Presentation: 25-year-old G1, P0 at 38 weeks admitted for induction of labor for initial diagnosis of gestational hypertension was diagnosed with pre with severe features during labor due to severe range blood pressures. She was induced with Cytotec and Hui bulb followed by Pitocin. She made cervical change to complete dilation. Due to maternal exhaustion, she was permitted to labor down for approximately 1.5 hours. She pushed with good maternal effort for approximately 1 hour and became exhausted. Type of Induction: Pitocin, Hui Bulb and Cytotec Medical Reason for Induction: Preeclampsia, eclampsia Operative Information Date of Procedure: 12/02/20 Pre-Operative Diagnosis: Term , preeclampsia with severe features, maternal exhaustion Post-Operative Diagnosis: Same Surgery / Procedure Performed: Forceps Assisted Vaginal Delivery Type of Anesthesia: Epidural Drain: Hui to straight drain Estimated Blood Loss: 250 Findings Description of Procedure: Patient was pushing with good effort but became exhausted. head was noted to be at the +3 station. Recommendation was made to proceed with a forceps assisted vaginal delivery. The maternal bladder had just been changed and Hui catheter was removed. Additional help was called to the room. [employer]oter was called to the room. Anesthesia level was found to be adequate. [place] forceps were applied without difficulty and placement was noted to be correct. The head delivered with 1 contractions 1 pulls. Patient began pushing and delivered the head in the K[place] presentation. The head was delivered atraumatically and a loose nuchal cord ?2 was identified and easily reduced over the infant's head. The anterior and posterior shoulders delivered without complication followed by the rest of the infant and the was placed on the maternal abdomen. The cord was immediately clamped and cut and the was taken to the warmer for evaluation. Gentle traction was applied to the cord and the placenta delivered spontaneously immediately following it was noted to be intact with three-vessel cord. The perineum and vagina were inspected and bilateral sulcal lacerations with a midline second-degree perineal laceration was noted and repaired in the standard fashion using 2-0 Vicryl suture. EBL was 250 cc. Patient and tolerated delivery well. Presentation: Vertex and KAYLEIGH Amniotic Membrane Rupture Type: Spontaneous Amniotic Fluid Description: Clear Placental Delivery Description: Spontaneous Placenta Disposition: [facility] Specimen(s) Removed: Placenta Cord Vessel Description: 3 Vessels Cord Entanglement: Around neck x 2, loose Nuchal Cord Compression: Without compression Infant A Gender: Male Delayed Cord Clamping: No Post Vaginal Delivery Medications Given After Delivery: IV Pitocin Episiotomy Description: None Laceration: Midline, Perineal Extension/lac, Vaginal Extension/lac (Bilateral sulcal) and 2nd degree Complication Complications: None Procedures Urinary/Genital 52xxx-59xxx: [id number] Vaginal Delivery+PP Care(DILIP) (Forceps assisted)
--- NOTE | 2020-12-02 18:41 | NURSING ---
Dr. Thompson aware that urine output was low the last two hours of labor. Hui catheter removed at delivery and Dr. Thompson is okay with catheter not being reinserted. However, closely monitor urine output after recovery when patient is able to void.
--- NOTE | 2020-12-02 21:52 | NURSING ---
RN in room. Discussed putting in a solorio catheter to help drain bladder. Patient wishes to try to ambulate to bathroom at this time. This RN and Markus RN helped patient to bedside. patient had increased nausea and vomited 50 ml of clear emesis. Able to march at bedside for a few steps and then felt weak. This RN and Markus RN able to get patient into wheelchair and into bathroom. Changed bed linens. While on toilet, patient felt like she wasn't able to empty bladder all the way- was able to void 300 ml of urine. patient then started to feel lightheaded and had increased tinnitus. Patient appearance pale and diaphoretic. Called Julieth TAY and Wanda RN to room with ammonia tablet. Gave patient 8 oz of apple juice and cold rag. After 5 minutes, patient felt well enough to get into wheelchair and back into bed. Patient agreed to solorio catheter at this time, to be discontinued when patient tolerates ambulation to BR. This RN obtained additional 200 ml of cloudy, yellow urine. This RN advised patient to call RN to room if she wants to get out of bed. Will continue to monitor patient progress.
[2020-12-02] MEDS: NIFEdipine 30 MG Tablet PO (22:16)
[2020-12-03] VITALS (36 sets, daily range): BP systolic 114–144; BP diastolic 56–84; PULSE 78–100; RESP 16–20; TEMP 35.7–37.2; O2SAT 96–98
[2020-12-03] MEDS: Ibuprofen 600 MG Tablet PO ×2 (00:40→10:18)
[2020-12-03] MEDS: Magnesium Sulfate 20 GM/500 ML BAG IV ×2 (03:16→12:33)
--- NOTE | 2020-12-03 08:44 | PCM.PN.OB ---
Subjective Subjective Patient doing well without complaints. Tolerating PO. Ambulating and voiding without difficulty. Breast feeding well. Denies chest pain, shortness of breath, calf pain/swelling, fevers, chills, lightheadedness. Reports having significant difficulty with mood. Objective Data Objective Data Vital Signs: Vital Signs Temp Pulse Resp BP Pulse Ox 97.5 F L 94 20 H 143/72 H 97 12/03/20 08:36 12/03/20 08:38 12/03/20 08:38 12/03/20 08:38 12/03/20 08:38 Oxygen Delivery Method Room Air Weight: 332 lb 10.841 oz Body Mass Index (BMI) 58.9 Intake & Output: Intake and Output for Last 24 Hours 12/01/20 12/02/20 12/03/20 23:59 23:59 23:59 Intake Total 350 / 350 3753.04 / 3753.04 1070.83 / 1070.83 Output Total 100 / 100 2300 / 2300 585 / 585 Balance 250 / 250 1453.04 / 1453.04 485.83 / 485.83 Lab / Micro Data Result Diagrams: 12/01/20 12:10 12/01/20 12:10 Micro: Microbiology 12/01/20 13:45 Nasal Secretion SARS-CoV-2 Antigen (Rapid) - Final ROS Constitutional Constitutional: Denies fever(s) Cardiovascular Cardiovascular: Denies chest pain, dyspnea or lightheadedness Gastrointestinal Gastrointestinal: Reports abdominal pain; Denies constipation or diarrhea Neurologic Neurologic: Denies dizziness or headache(s) Physical Exam Const alert, oriented x3, no apparent distress, average body habitus, healthy appearing and well nourished HEENT normocephalic Head and Scalp: atraumatic Eyes PERRL and EOMs intact bilaterally Neck full ROM Lymph Lymphatic: no lymphadenopathy noted Resp normal respiratory effort, no retractions and no use of accessory muscles Cardio regular rate GI soft to palpation, non-tender and non-distended Palpation: other Other Details: fundus firm Extremity normal to inspection and no clubbing, cyanosis or edema Skin no rashes or lesions noted Neuro no focal motor deficits and no sensory deficits noted Psych mental status grossly normal, affect normal and speech normal Assessment & Plan (1) Pre-eclampsia: PLAN: Mag to come off at 1800 On Procardia XL 30mg daily BPs mild range to normal (2) Outlet forceps delivery: COMMENT: GP IOL PreEwSF FAVD Boy-[place] PLAN: s/p FAVD PPD # 1 1. routine post delivery care 2. breast feeding- support given 3. rh positive 4. rubella immune 5. PP Depression - significant difficulty with mood, start zoloft, discussed counseling
--- NOTE | 2020-12-03 08:47 | PCM.DC ---
Discharge Instructions Diet Discharge Diet: No restrictions Activity Discharge Activity: Return to Normal Activity, May Not Drive (while taking narcotic pain medications.) and May Shower May resume sexual activity in: 4-6 weeks Dressing / Incision Call your doctor if your incision/area has: Continuous Slow Oozing, Sudden Increased Bleeding, Increased Pain/ Swelling, Increased Redness and Foul Smelling Discharge Follow Up Care When: Call to make an appointment with your doctor in 6 weeks. If you had elevated Blood Pressure or 4th degree laceration you will need to be seen in 2 weeks. Test Results: Test results from this visit will be discussed in further detail at your follow-up appointment, if applicable. Discharge Plan Admission Admit Date/Time: 12/01/20 12:35 Attending Provider: Petrona Thompson Primary Care Provider: Care PhysicianCony Primary Instructions Patient Instructions: After a Vaginal Discharge Orders/Prescriptions Prescriptions: New nifedipine 30 mg Tablet Extended Release 24hr 30 mg PO QHS Qty: 30 RF: 3 sertraline 50 mg Tablet 50 mg PO DAILY Qty: 30 RF: 11 ibuprofen 800 mg tablet 800 mg PO Q8H PRN (Reason: pain) Qty: 30 RF: 1 Continued albuterol sulfate 90 mcg/actuation HFA aerosol inhaler 1 inh INHALATION DAILY PRN (Reason: asthma) RF: 0 PNV-DHA 27 mg iron-1 mg -300 mg capsule 1 cap PO DAILY RF: 0 promethazine 12.5 mg tablet 12.5 mg PO TID PRN (Reason: nausea and vomiting) Qty: 30 RF: 1 ondansetron HCl [Zofran] 4 mg tablet 4 mg PO Q8H PRN (Reason: nausea and vomiting) Qty: 60 RF: 3 cetirizine 10 mg Tablet 10 mg PO DAILY RF: 0 Referrals / Follow Up: Care Physician,Cony Primary [Primary Care Provider] -
[2020-12-03] MEDS: Sertraline 50 MG Tablet PO (10:18)
[2020-12-03] MEDS: Loratadine 10 MG Tablet PO (10:18)
--- NOTE | 2020-12-03 10:53 | NURSING ---
ELBA Schmitz in seeing pt. Pt. has been very tearrful at several points this am. First time that she cried was after this nurse brought up that infant was a little spitty and how to use the bulb syringe if needed. Pt. noted to be crying after talking with her, asked her if that scared her about being spitty - she stated that it did. Pt. was ok with having bath, started doing the bath and talking through it with pt. and FOB, pt. was looking at PHQ-9 paper to complete. Pt. tearful while doing this, very distracted with bath. Dr. Thompson also in room at this time, and pt. tearful, talking with her about being overwhelmed with everything. Dr. Thompson discussed with her putting her on Zoloft, pt. agreeable with this. FOB trying to assist mother fill out the PHQ-9 form, stating Well, no, that's just because you were ! Don't answer because you were ! Requested by nursing to fill out form based on how she was feeling, even with , over the last 2 weeks. Score of 18 - this was reported to Ainsley, as well as that she scored on #9. Will be seen by SW. Pt. is completing care as needed for . Tearful as she is concerned that she went over for feeding him - reminded her that it's every 2-3 hours, and it hadn't been 3 hrs. That she needs to feed 8-12 times in a 24-hr period, which allows for 3 hrs. in between some feeds. Does not hold just to hold, but also reports that she is completely exhausted. FOB remains in room, but is usually on his phone or sleeping. He appears unkempt. His plan was to leave to go home to do something with the dog and get the house ready for the baby. Encouraged father that staying here may be more helpful at this time as pt. is very overwhelmed, and that the house can get ready when infant is home, depending on what that meant. So, he remains in room currently, still on phone and sleeping. Pt. up to bathroom with minimal assist, reports that it felt great to be up out of bed.
--- NOTE | 2020-12-03 11:45 | NURSING ---
ELBA Schmitz remains with pt doing mental health assessment - no mag check done with attempt at letting her finish her assessment.
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
[2020-12-03] MEDS: Acetaminophen 500 MG Tablet 1000 MG PO (12:35)
[2020-12-03] MEDS: Prenatal Vits Tablet 1 TABLET PO ×2 (12:35)
[2020-12-03] MEDS: Ondansetron 4 MG/2 ML Vial IV (15:40)
--- NOTE | 2020-12-03 16:30 | CASEMGMT ---
Social Work Labor and Delivery Unit This proposal writer, with patient/mother of baby (MOB) permission, called the counseling center of [facility]. Scheduled an intake assessment for 12/23/2020 at 1230 for paperwork, and 1 PM if practitioner named Rachel. This appointment based off of MOB's thought she may no longer have income due to being . Per the counseling center if the patient will have [place] in the month of December and a new appointment will need to be made as necessary is not an [place] provider. With the MOB in room. asleep in bedside crib. Father of baby at home, and has been at home since near the end of the social work assessment. MOB reports belief the FOB is probably sleeping. The FOB had gone home to check on the house, and 4 dogs they have in the home. MOB reports to be doing okay at this time. Reports hope that the FOB will return soon. Educated MOB to the mental health follow-up, and the need to confirm with him, as to whether coverage will continue through the of December. MOB texted her father while social work still in the room, and asked her father to check on this matter. Provided the MOB with him written information about follow-up appointment, including a 24-hour crisis line if needed. Educated MOB that should she need to be seen before the intake, could call in and see a community mental health worker. Provided a [facility] resource list, information on shaken baby, safe sleeping, packet on mood and anxiety disorders, WIC applications, and handout on a grounding exercise for MOB to practice which may assist with anxiety. MOB denies any other concerns at this point. This proposal writer addressed further letter MOB has any additional help, other than the FOB and MOB reports to feel the FOB is good about knowing when MOB is struggling emotionally. Reports in addition to the FOB, Michelle called on the FOB sister, or mother. MOB reports to have an older couple who are neighbors, and in a pinch could turn to for help. MOB did share that she and the FOB are using 1 vehicle between the 2 of them, so this is sometimes also a stress. Spoke with MOB nurse Juhi, who reports that MOB is doing better this afternoon as compared to this morning. MOB reportedly feeling more relaxed. Continues to work with breast-feeding. Plan: MOB and infant will discharge home when ready. Mental health follow-up in place for the MOB, and community resource information provided. Will monitor for how MOB continues to do with infant care and coping to determine whether any additional referrals are warranted. Handoff to social worker palliative care who is working on Sunday in case concerns arise prior to discharge. -LORENA Duran, IMPROVEMENT INTERN *Information generated via the [employer] system.*
[2020-12-03] MEDS: 0.9% Saline Lock 10 ML Syringe IV (20:24)
[2020-12-03] MEDS: NIFEdipine 30 MG Tablet PO (22:37)
[2020-12-04] MEDS: Ondansetron 4 MG/2 ML Vial IV (02:32)
[2020-12-04] MEDS: 0.9% Saline Lock 10 ML Syringe IV (02:33)
[2020-12-04 06:00] VITALS: BP 112/54; PULSE 80; RESP 16; TEMP 36.5; O2SAT 97
[2020-12-04 07:53] VITALS: BP 148/79; PULSE 94; RESP 18; TEMP 36.5; O2SAT 97
[2020-12-04] MEDS: Ondansetron 8 MG Tablet 4 MG PO (09:51)
[2020-12-04] MEDS: Sertraline 100 MG Tablet PO (09:52)
[2020-12-04 14:14] VITALS: BP 143/75; PULSE 80; RESP 16; TEMP 36.7; O2SAT 96
--- NOTE | 2020-12-04 14:28 | PCM.PN.OB ---
Subjective Subjective Patient doing well with stable mood, but still persistent nausea, appetite decreased Tolerating PO. Ambulating and voiding without difficulty. feeding well. Denies chest pain, shortness of breath, calf pain/swelling, fevers, chills, lightheadedness. Objective Data Objective Data Vital Signs: Vital Signs Temp Pulse Resp BP Pulse Ox 98.1 F 80 16 143/75 H 96 12/04/20 14:14 12/04/20 14:14 12/04/20 14:14 12/04/20 14:14 12/04/20 14:14 Oxygen Delivery Method Room Air Weight: 332 lb 10.841 oz Body Mass Index (BMI) 58.9 Intake & Output: Intake and Output for Last 24 Hours 12/02/20 12/03/20 12/04/20 23:59 23:59 23:59 Intake Total 3753.04 / 3753.04 2142.50 / 2142.50 Output Total 2300 / 2300 1385 / 1385 Balance 1453.04 / 1453.04 757.50 / 757.50 Lab / Micro Data Result Diagrams: 12/01/20 12:10 12/01/20 12:10 Micro: Microbiology 12/01/20 13:45 Nasal Secretion SARS-CoV-2 Antigen (Rapid) - Final ROS Constitutional Constitutional: Reports systems reviewed and no addt'l complaints, except as documented Cardiovascular Cardiovascular: Reports systems reviewed and no addt'l complaints, except as documented Respiratory/Chest Respiratory/Chest: Reports systems reviewed and no addt'l complaints, except as documented Gastrointestinal Gastrointestinal: Reports systems reviewed and no addt'l complaints, except as documented Physical Exam Const alert, oriented x3 and no apparent distress HEENT Head and Scalp: atraumatic Resp normal respiratory effort GI soft to palpation and non-tender Bimanual Exam - Vag & Uterus: uterus non-tender Uterus Palpation: uterus fundus firm (below Umbilicus) Assessment & Plan (1) Pre-eclampsia: (2) Outlet forceps delivery: COMMENT: GP IOL PreEwSF FAVD Boy-[place] (3) Morbid obesity: COMMENT: BMI 49. Early 1h GCT NL. Discussed healthy weight gain. 28wk 1 hr glucose elevated, 3 hr ordered and nl, nl growth 09/30 (4) : QUALIFIERS: Weeks of gestation: 38 weeks Qualified Code(s): Z3A.38 - 38 weeks gestation of COMMENT: NIPT- low risk boy. carrier neg. ; GBS NEG (5) Supervision of normal : QUALIFIERS: Normal : normal first Trimester: second trimester Qualified Code(s): Z34.02 - Encounter for supervision of normal first , second trimester COMMENT: PRR HUMA: 12/13/20 Boy BF: TJ PLAN: s/p PPD # 1 1. routine post delivery care 2. breast feeding- support given 3. rh positive 4. rubella immune add compazine for nausea
[2020-12-04] MEDS: proCHLORPERazine 5 MG Tablet 10 MG PO (15:13)
[2020-12-04 19:09] VITALS: BP 144/93; PULSE 75; RESP 16; TEMP 36.1; O2SAT 98
[2020-12-04] MEDS: NIFEdipine 30 MG Tablet PO (19:10)
[2020-12-04] MEDS: Ibuprofen 600 MG Tablet PO (19:10)
--- NOTE | 2020-12-06 13:56 | CASEMGMT ---
Social Work Labor and Delivery Unit This publications writer received phone call from hospital social media project manager on Sunday and also spoke with nursing on Sunday regarding how things are going with the baby and family. Concern continued to be present throughout the weekend regarding the mother of baby (MOB) still needing much encouragement and support providing indpendent care to the baby. MOB appropriate in care, but needing much support. Minimal interactions from the father of baby (FOB) noted. Chart reviewed today. MOB has been discharged as the patient is currently on hotel status, awaiting for baby's clearance for discharge. Met with MOB and FOB in room. Both sleeping and baby sleeping in the bedside crib. Checked in on how things are going. MOB reports to be doing okay, and that had less crying spells over the weekend than had anticipated. Explored how MOB is feeling about registered nurse maternal child. MOB reports to feel to have the diapering down. Reports has chosen to formula feed and this is going okay too. Explored whether MOB and FOB have communicated about respective roles and how will help each other with the baby. MOB voiced belief that needs to get the routine down with the baby on own, as FOB will only be off of work for 2 weeks. Acknowledged this, but also discussed with MOB that part of adjusting is accepting and asking for help. MOB reports to feel she will be able to ask for help if needed. Explored who the options are for support: FOB, FOB's sister, mother and father. Also encouraged MOB to ask for help before feeling overwhelmed. This publications writer explored with FOB as to how FOB feels about the baby and going home. FOB reported that is not worried about the baby care, and to feel to have that part down. FOB reported that is just ready to go home and sleep in own bed as feels to have pain all over from uncomfortable furniture. This publications writer addressed mental health follow up. MOB reports to have learned will be on [place] until the age of 27. This publications writer offered to get the intake rescheduled to an [place] provider then. MOB agreed. Offered to call [facility], as this office takes [place] and has psychiatry. MOB reports preference to [facility] due to not knowing about copays and wanting to ensure that medicaid can be used as well. [facility]. MOB prefers to see a female and first female provider that takes [place] is 01.25.2021 at 1230 for paperwork and 1300 with Neeru Garcia. This publications writer did let MOB know that can call crisis any time if needs to be seen before 01.25.2021. Reviewed with MOB that will be making a [facility] referral. Also broached that sometimes when parents have babies, if there are concerns on how things are going, sometimes children services will check on the family at home. MOB nodded head yes, as if in understanding, and made no comment or had no question about this possibility. MOB's affect constricted, noted leg slightly restless. FOB did not say anything about follow ups. Noted that FOB appear disheveled. Updated RN. Plan: MOB has been discharged. Infant likely discharging today. Mental health appointment in place, community resource information provided. Will make [facility] referral. Will be calling [facility] due to dependency concerns for this family. -LORENA Duran, ENOLOGIST
--- NOTE | 2020-12-06 14:05 | CASEMGMT ---
Social Work Labor and Delivery Unit Spoke with lead auditor to update. Called [facility] ([facility]) and spoke with Almaz in the intake department, , extension [phone]. Referral due to dependency concerns related to maternal mental health and limited supports. Brief maternal and infant histories provided. Updated to resources and services in place for family. Reviewed concerns present during the hospital stay. Anticipate referral to be screened in for dependency issues with follow up from [facility] in the community. [facility] referral completed via the [facility]'s secure web based referral system. No other services requested or indicted. Refer to prior social work documentation regarding interventions. -JOHN Duran, SENIOR ANALYTICAL CHEMIST
== END 2020-12-04 19:15 | disposition home or self-care (01) | DRG 807 ==
LOC: WPOUT 12:39 → WP 12:39
PROVIDERS: Admitting Provider Obstetrics & Gynecology; Referring Provider Obstetrics & Gynecology; Visit Provider Obstetrics & Gynecology
DX: O14.14 Severe pre-eclampsia complicating childbirth (principal); Z37.0 Single live birth; O35.8XX0 Maternal care for other (suspected) fetal abnormality and damage, not applicable or unspecified; O75.81 Maternal exhaustion complicating labor and delivery; O99.214 Obesity complicating childbirth; O69.81X0 Labor and delivery complicated by cord around neck, without compression, not applicable or unspecified; O70.1 Second degree perineal laceration during delivery; O99.345 Other mental disorders complicating the puerperium; F53.0 Postpartum depression; E66.01 Morbid (severe) obesity due to excess calories; Z3A.38 38 weeks gestation of pregnancy
CPT/HCPCS: 59025; 59050; 82565; 82570; 84156; 84450; 84460; 84550; 85027; 86850; 86900; 86901; 87426; 99218; J7120; A4216; G0378; J2405

== ENCOUNTER → 2021-10-04 | Outpatient (CLI) | payer BC, MEDICAID, SELFPAY ==
[2021-10-04 14:15] LABS: hCG Titer Quant., Serum < 1 mIU/mL (1-3)
== END | disposition home or self-care (01) ==
LOC: LAB 13:18
PROVIDERS: Referring Provider Obstetrics & Gynecology; Visit Provider Obstetrics & Gynecology
DX: N91.2 Amenorrhea, unspecified (principal)
CPT/HCPCS: 36415; 84702

== ENCOUNTER → 2021-10-19 | Outpatient (CLI) | payer BC, MEDICAID, SELFPAY ==
--- NOTE | 2021-10-19 15:22 | US_ITS ---
EXAM: US PELVIS TRANSABDOMINAL, COMPLETE CLINICAL INDICATION: pelvic pain-RLQ SHARP TECHNIQUE: Transabdominal pelvic ultrasound was performed with grayscale and color Doppler imaging. This report was created using [employer] report Compliance 11 technology. COMPARISON: None. FINDINGS: UTERUS/CERVIX: The uterus measures 8.2 x 3.4 x 5.1 cm. The endometrium measures 4 mm. Anteverted. There is no uterine mass. RIGHT OVARY: The right ovary is not visualized. LEFT OVARY: The left ovary measures 3.8 x 2.3 x 2.5 cm. There is an anechoic structure in the left ovary compatible with a cyst that measures 1.8 x 1.4 cm. Blood flow is present in the left ovary. FREE FLUID: None. BLADDER: Unremarkable as visualized. Wall is normal thickness for degree of distention. TUBES, LINES AND DEVICES: There is echogenic focus in the uterus without intrauterine device. US/Transvaginal Non- IMPRESSION: Intrauterine device in place. There is a left ovarian cyst. The right ovary was not visualized. Electronically Signed: Preston Yeh MD at 17:49 EDT ,
--- NOTE | 2021-10-19 15:22 | US_ITS ---
EXAM: US PELVIS TRANSABDOMINAL, COMPLETE CLINICAL INDICATION: pelvic pain-RLQ SHARP TECHNIQUE: Transabdominal pelvic ultrasound was performed with grayscale and color Doppler imaging. This report was created using [employer] report Souktel technology. COMPARISON: None. FINDINGS: UTERUS/CERVIX: The uterus measures 8.2 x 3.4 x 5.1 cm. The endometrium measures 4 mm. Anteverted. There is no uterine mass. RIGHT OVARY: The right ovary is not visualized. LEFT OVARY: The left ovary measures 3.8 x 2.3 x 2.5 cm. There is an anechoic structure in the left ovary compatible with a cyst that measures 1.8 x 1.4 cm. Blood flow is present in the left ovary. FREE FLUID: None. BLADDER: Unremarkable as visualized. Wall is normal thickness for degree of distention. TUBES, LINES AND DEVICES: There is echogenic focus in the uterus without intrauterine device. US/Pelvic (Non ) IMPRESSION: Intrauterine device in place. There is a left ovarian cyst. The right ovary was not visualized. Electronically Signed: Preston Yeh MD at 17:49 EDT ,
== END | disposition home or self-care (01) ==
PROVIDERS: Referring Provider Obstetrics & Gynecology; Visit Provider Obstetrics & Gynecology
DX: N83.202 Unspecified ovarian cyst, left side (principal); R10.2 Pelvic and perineal pain
CPT/HCPCS: 76830; 76856

== ENCOUNTER → 2022-05-09 | Outpatient (CLI) | payer BC, MEDICAID, SELFPAY ==
[2022-05-09 13:20] LABS: hCG Titer Quant., Serum < 1 mIU/mL (1-3)
== END | disposition home or self-care (01) ==
LOC: PAVLAB 12:39
PROVIDERS: Referring Provider Nurse Practitioner Women's Health; Visit Provider Nurse Practitioner Women's Health
DX: N91.2 Amenorrhea, unspecified (principal)
CPT/HCPCS: 36415; 84702

== ENCOUNTER → 2022-05-19 | Outpatient (CLI) | payer BC, MEDICAID, SELFPAY ==
[2022-05-19 13:41] LABS: hCG Titer Quant., Serum < 1 mIU/mL (1-3)
== END | disposition home or self-care (01) ==
PROVIDERS: Referring Provider Obstetrics & Gynecology; Visit Provider Obstetrics & Gynecology
DX: N91.2 Amenorrhea, unspecified (principal)
CPT/HCPCS: 36415; 84702

== ENCOUNTER → 2022-10-27 | Outpatient (CLI) | payer MEDICAID, SELFPAY ==
[2022-11-02 17:28] LABS: HPV Reflexed? NOT INDICATED
== END | disposition home or self-care (01) ==
PROVIDERS: Referring Provider Registered Nurse; Visit Provider Registered Nurse
DX: Z12.4 Encounter for screening for malignant neoplasm of cervix (principal)
CPT/HCPCS: 88175; G0145

== ENCOUNTER → 2022-10-30 | Outpatient (CLI) | payer MEDICAID, SELFPAY ==
[2022-10-30 10:29] LABS: Hemoglobin A1c 5.6 % (3.8-5.6)
[2022-10-30 10:45] LABS: Progesterone Level 0.26 ng/mL (See Comment)
[2022-10-30 10:53] LABS: Cholesterol 223 mg/dL (200); High Density Lipoprotein 42 mg/dL; T4 Free Direct 0.97 ng/dL (0.76-1.46); Thyroid Stim Hormone (TSH) 2.89 uIU/mL (0.358-3.74); Triglycerides 177 mg/dL; Very Low Density Lipoprotein 35 mg/dL (5-40)
[2022-11-05 19:07] LABS: Testosterone Free 0.5 pg/mL (0.0-4.2)
== END | disposition home or self-care (01) ==
PROVIDERS: Referring Provider Registered Nurse; Visit Provider Registered Nurse
DX: N92.6 Irregular menstruation, unspecified (principal)
CPT/HCPCS: 36415; 80061; 82627; 83036; 83516; 84144; 84146; 84402; 84439; 84443; 82626

== ENCOUNTER → 2023-02-05 | Outpatient (CLI) | payer MEDICAID, SELFPAY ==
[2023-02-05 13:44] LABS: Absolute Lymphocyte Count 4.14 X10^3/uL (0.83-4.51); Absolute Neutrophil Count 6.5 X10^3/uL (2.0-7.7); Basophil# 0.09 X10^3/uL; Basophil% 0.8 % (0-1); Eosinophil# 0.07 X10^3/uL; Eosinophils% 0.6 % (0-5); Hemoglobin 13.9 g/dL (12.0-15.0); Lymphocyte # 4.14 X10^3/ul (0.83-4.51); Lymphocyte % 36.5 % (19-41); Mean Corp Hgb Conc 31.6 g/dL (32-36); Mean Corpuscular Hgb 26.9 pg (27.0-32.0); Mean Corpuscular Volume 85.1 fL (81-99); Mean Platelet Vol. 9.5 fl (6.2-12.0); Monocyte# 0.48 X10^3/uL; Monocyte% 4.2 % (0-10); NRBC Flagged by Analyzer 0 % (0-5); Neutrophil # 6.49 X10^3/uL (2.7-7.7); Neutrophil % 57.4 % (47-70); Platelet Count 452 K/mm3 (150-450); RBC Distribution Width CV 14.2 % (11.6-14.6); RBC Distribution Width SD 44.2 fl (35.1-43.9); Red Blood Count 5.17 M/mm3 (4.2-5.4); White Blood Count 11.3 K/mm3 (4.4-11.0)
[2023-02-05 14:11] LABS: Hemoglobin A1c 5.6 % (3.8-5.6)
[2023-02-05 14:17] LABS: ALB/GLOB Ratio 0.7 RATIO (0.9-2.4); AST(SGOT) 26 U/L (15-37); Alanine Aminotransfer ALT/SGPT 58 U/L (13-56); Albumin, Serum 3.5 g/dL (3.2-5.0); Alkaline Phosphatase 97 U/L (45-117); Anion Gap 4 (5-15); BUN 13 mg/dL (7-18); BUN/Creat Ratio 18.7 RATIO (10-20); Calcium,Total 8.9 mg/dL (8.5-10.1); Chloride 105 mmol/L (98-107); Cholesterol 217 mg/dL (200); EST Glomerular Filtration Rate 108 mL/min (>60); Est Glom Filt Rate - Afr Amer 131 mL/min (>60); Glucose 102 mg/dL (74-106); High Density Lipoprotein 40 mg/dL; Potassium 3.8 mmol/L (3.5-5.1); Protein, Total 8.5 g/dL (6.4-8.2); Sodium Level 135 mmol/L (136-145); Thyroid Stim Hormone (TSH) 2.35 uIU/mL (0.358-3.74); Triglycerides 140 mg/dL; Very Low Density Lipoprotein 28 mg/dL (5-40)
[2023-02-08 14:09] LABS: Vitamin D 1,25-Dihydroxy 32.4 pg/mL (24.8-81.5)
== END | disposition home or self-care (01) ==
LOC: LAB 12:50
PROVIDERS: Referring Provider Obstetrics & Gynecology; Visit Provider Obstetrics & Gynecology
DX: E66.8 Other obesity (principal); Z68.44 Body mass index [BMI] 60.0-69.9, adult
CPT/HCPCS: 36415; 80053; 80061; 82652; 83036; 84443; 85025

== ENCOUNTER → 2023-03-08 | Outpatient (CLI) | payer MEDICAID, SELFPAY ==
--- NOTE | 2023-03-08 10:08 | EKG12_ITS ---
Test Reason : OBESITY Blood Pressure : / mmHG Vent. Rate : 099 BPM Atrial Rate : 099 BPM P-R Int : 132 ms QRS Dur : 072 ms QT Int : 334 ms P-R-T Axes : 028 061 069 degrees QTc Int : 428 ms Normal sinus rhythm Nonspecific ST and T wave abnormality Abnormal ECG Confirmed by LUCIA CAN, DANTE ([id number]), digital editor LIZZ CARLISLE ([id number]) on 03/09/2023 9:28:14 AM Referred By: Neeru Angela Confirmed By:DANTE MYERS MD
== END | disposition home or self-care (01) ==
LOC: PSN 10:08
PROVIDERS: Referring Provider Obstetrics & Gynecology; Visit Provider Obstetrics & Gynecology
DX: E66.8 Other obesity (principal); Z68.44 Body mass index [BMI] 60.0-69.9, adult
CPT/HCPCS: 93005

== ENCOUNTER → 2023-03-08 | Outpatient (CLI) | payer MEDICAID, SELFPAY | END | disposition home or self-care (01) | LOC: LAB 10:23 | PROVIDERS: Referring Provider Obstetrics & Gynecology; Visit Provider Obstetrics & Gynecology | DX: Z00.00 Encounter for general adult medical examination without abnormal findings (principal) ==

== ENCOUNTER → 2023-03-19 | Outpatient (CLI) | payer MEDICAID, SELFPAY | END | disposition home or self-care (01) | LOC: SL 13:31 | PROVIDERS: Referring Provider Nurse Practitioner Acute Care; Visit Provider Nurse Practitioner Acute Care | DX: G47.10 Hypersomnia, unspecified (principal); R06.83 Snoring | CPT/HCPCS: 95801; 95806 ==

== ENCOUNTER → 2023-04-16 | Outpatient (CLI) | payer MEDICAID, SELFPAY | END | disposition home or self-care (01) | LOC: SL 13:05 | PROVIDERS: Visit Provider Nurse Practitioner Acute Care | DX: Z00.00 Encounter for general adult medical examination without abnormal findings (principal) ==

== ENCOUNTER 2023-06-06 18:12 | Emergency (ER) | payer MEDICAID, SELFPAY ==
[2023-06-06 18:14] VITALS: BP 122/84; PULSE 81; RESP 16; TEMP 36.6; O2SAT 98; BMI 58.4
[2023-06-06 18:52] LABS: Absolute Lymphocyte Count 3.69 X10^3/uL (0.83-4.51); Absolute Neutrophil Count 9.3 X10^3/uL (2.0-7.7); Basophil# 0.07 X10^3/uL; Basophil% 0.5 % (0-1); Eosinophil# 0.09 X10^3/uL; Eosinophils% 0.7 % (0-5); Hematocrit 43.9 % (37-47); Hemoglobin 13.8 g/dL (12.0-15.0); Lymphocyte # 3.69 X10^3/ul (0.83-4.51); Lymphocyte % 26.8 % (19-41); Mean Corp Hgb Conc 31.4 g/dL (32-36); Mean Corpuscular Hgb 26.5 pg (27.0-32.0); Mean Corpuscular Volume 84.4 fL (81-99); Mean Platelet Vol. 9.8 fl (6.2-12.0); Monocyte# 0.57 X10^3/uL; Monocyte% 4.1 % (0-10); NRBC Flagged by Analyzer 0 % (0-5); Neutrophil # 9.28 X10^3/uL (2.7-7.7); Neutrophil % 67.5 % (47-70); Platelet Count 418 K/mm3 (150-450); RBC Distribution Width CV 14.6 % (11.6-14.6); RBC Distribution Width SD 44.8 fl (35.1-43.9); White Blood Count 13.8 K/mm3 (4.4-11.0)
[2023-06-06 19:16] LABS: ALB/GLOB Ratio 0.8 RATIO (0.9-2.4); AST(SGOT) 12 U/L (15-37); Alanine Aminotransfer ALT/SGPT 20 U/L (13-56); Albumin, Serum 3.6 g/dL (3.2-5.0); Alkaline Phosphatase 108 U/L (45-117); Anion Gap 5 (5-15); BUN 12 mg/dL (7-18); BUN/Creat Ratio 17.1 RATIO (10-20); Chloride 104 mmol/L (98-107); EST Glomerular Filtration Rate 107 mL/min (>60); Est Glom Filt Rate - Afr Amer 129 mL/min (>60); Globulin 4.8 g/dL (2.2-4.2); Glucose 88 mg/dL (74-106); Lipase 20 U/L (13-75); Potassium 4.1 mmol/L (3.5-5.1); Protein, Total 8.4 g/dL (6.4-8.2); Sodium Level 137 mmol/L (136-145)
[2023-06-06] MEDS: Ondansetron 4 MG/2 ML Vial IV (19:30)
--- NOTE | 2023-06-06 19:31 | ED.VIS.GI ---
HPI HPI - GI History of Present Illness Chief Complaint: Abd Pain Narrative Narrative: 27-year-old female presenting with epigastric pain. She states she initially noticed it about 3 weeks ago and it came and went. She states it lasted for a few days. She states it felt sharp and radiated to her back. She has not had much nausea with it. Patient states that it went away and then came back this week. Patient states that she does drink Diet Coke. She also states that yesterday she had lasagna for dinner. Her pain was initially worse today but has gotten better over the course of the day without any treatment. Patient denies any history of GERD, gastritis. Has not had a fever or chills. No diarrhea or constipation. PFSH PFS Medical History Anxiety Asthma Contraceptive management Family history of hearing loss at age younger than 7 years Pre-eclampsia Home Medications cetirizine 10 mg tablet (Zyrtec) 10 mg PO DAILY 12/06/21 [History Last Taken Unknown] nifedipine 30 mg tablet,extended release 24 hr (Procardia XL) 30 mg PO DAILY #30 tabs 01/11/23 [Rx Last Taken Unknown] sertraline 100 mg tablet (Zoloft) 100 mg PO DAILY #30 tabs 01/11/23 [Rx Last Taken Unknown] norethindrone (contraceptive) 0.35 mg tablet See Rx Instructions .Route .COMPLEX #84 tabs 01/12/23 [Rx Last Taken Unknown] omeprazole 40 mg capsule,delayed release 40 mg PO DAILY #60 caps 06/06/23 [Rx Last Taken Unknown] ondansetron 4 mg disintegrating tablet 4 mg PO Q8H PRN PRN Nausea #30 tabs 06/06/23 [Rx Last Taken Unknown] sucralfate 100 mg/mL oral suspension (Carafate) 10 ml PO BID PRN epigastric pain #1,000 mL 06/06/23 [Rx Last Taken Unknown] Allergy/AdvReac Type Severity Reaction Status Date / Time No Known Allergies Allergy Verified 06/06/23 18:14 Family History Mother Cancer had a hysterectomy Father Craniosynostosis Surgical History H/O oral surgery Social History household members: significant other Smoking Status: Former smoker alcohol intake: never substance use type: does not use caffeine: Yes what type of physical activity do you participate in: walking seatbelt use: always do you feel safe at home: Yes additional social history: works at [employer] in [place] - [employer] ROS ED Constitutional Constitutional ED: Denies chills, fever(s) or sweats Eyes Eyes: Denies blurry vision or change in vision ENT ENT ED: Denies ear pain or sore throat Cardiovascular Cardiovascular: Denies chest pain, palpitations or racing heartbeat Respiratory/Chest Respiratory/Chest: Denies cough, dyspnea or sputum Gastrointestinal Gastrointestinal: Reports abdominal pain; Denies constipation, diarrhea or vomiting Genitourinary Genitourinary ED: Denies dysuria, hematuria or urinary frequency Musculoskeletal Musculoskeletal: Denies arthralgias, myalgias or neck pain Integumentary Denies abscess, Abrasions or rash Neurologic Neurologic: Denies headache(s), paresthesias or weakness Psychiatric Psychiatric: Denies anxiety, depression, suicidal ideation or suicidal thoughts Endocrine Endocrinology: Denies polydipsia or polyuria EXAM Physical Exam Const Vital Signs: 06/06/23 18:14 Temperature 97.8 F Temperature Source Temporal Pulse Rate 81 Respiratory Rate 16 Blood Pressure 122/84 H Blood Pressure Mean 96 Pulse Ox 98 Oxygen Delivery Method Room Air Positive well nourished General Appearance ED: NAD; Negative for pallor HEENT Reports moist mucous membranes normocephalic and atraumatic Eyes PERRL and EOMs intact bilaterally Neck no lymphadenopathy Resp normal respiratory effort and clear to auscultation bilaterally Cardio regular rate and regular rhythm GI Palpation: tender epigastric Neuro CN's II-XII intact bilaterally and moves all extremities Sensorium / Orientation: alert Motor Exam: strength 5/5 throughout Psych mental status grossly normal and thought process normal Mood & Affect: Negative for anxious or tearful Skin General Skin Exam: Negative for jaundice or pallor MDM MDM MDM Narrative Medical decision making narrative: 27-year-old female with epigastric pain. She did have lasagna last night as well as was drinking pop. Her pain is only a Screening and she describes it as sharp. She also describes it as radiating to the back. Differential includes gastritis, GERD, peptic ulcer disease, cholelithiasis, pancreatitis. CBC was obtained to assess white blood cell count, hemoglobin, platelets. CMP to assess liver function and renal function, electrolytes, glucose. Lipase to assess for pancreatitis. Patient medicated with Zofran and GI cocktail she currently rates her pain at a 1. Lab work unremarkable with exception of a white count of 13.8 but she typically has a little bit of leukocytosis. No significant left shift. LFTs and lipase are all normal. Patient states the GI cocktail did not drastically change her pain but her pain was a 1/10 initially anyway. After discussing of her lab work and how it is essentially normal I recommended that we treat her as a gastric ulcer. We discussed this at length. She does state that she has had acid reflux in the past and this does not feel the same. I explained to her that with the peptic ulcer she might have more pain. The treatment would be the same with PPIs, Carafate. I gave her follow-up with Dr. Ji. I also recommended that she return should she had any new or worsening symptoms. She acknowledged understanding. Impression: 1. Epigastric pain 2. History of GERD 3. Peptic ulcer disease Lab Data Attestation: I reviewed the patient's lab results. Labs: Laboratory Results - last 24 hr 06/06/23 18:27 WBC 13.8 H RBC 5.20 Hgb 13.8 Hct 43.9 MCV 84.4 MCH 26.5 L MCHC 31.4 L RDW Std Deviation 44.8 H RDW Coeff of Kiarra 14.6 Plt Count 418 MPV 9.8 Immature Gran % (Auto) 0.400 Neut % (Auto) 67.5 Lymph % (Auto) 26.8 Hendry % (Auto) 4.1 Eos % (Auto) 0.7 Baso % (Auto) 0.5 Absolute Neuts (auto) 9.3 H Absolute Lymphs (auto) 3.69 Nucleated RBC % 0 Sodium 137 Potassium 4.1 Chloride 104 Carbon Dioxide 28.0 Anion Gap 5 BUN 12 Creatinine 0.70 Estim Creat Clear Calc 175.60 Est GFR (MDRD) Af Amer 129 Est GFR (MDRD) Non-Af 107 BUN/Creatinine Ratio 17.1 Glucose 88 Calcium 9.0 Total Bilirubin 0.40 AST 12 L ALT 20 Alkaline Phosphatase 108 Total Protein 8.4 H Albumin 3.6 Globulin 4.8 H Albumin/Globulin Ratio 0.8 L Lipase 20 Discharge Plan Triage Chief Complaint: Abd Pain ED Provider: Kennedy Malhotra Dx/Rx/DC Orders Prescriptions: New omeprazole 40 mg capsule,delayed release(DR/EC) 40 mg PO DAILY Qty: 60 0RF ondansetron 4 mg tablet,disintegrating 4 mg PO Q8H PRN PRN (Reason: Nausea) Qty: 30 0RF sucralfate [Carafate] 100 mg/mL suspension 10 ml PO BID PRN (Reason: epigastric pain) Qty: 1000 0RF No Action cetirizine [Zyrtec] 10 mg tablet 10 mg PO DAILY nifedipine [Procardia XL] 30 mg tablet extended release 24hr 30 mg PO DAILY Qty: 30 12RF sertraline [Zoloft] 100 mg tablet 100 mg PO DAILY Qty: 30 12RF norethindrone (contraceptive) 0.35 mg tablet See Rx Instructions .ROUTE .COMPLEX Qty: 84 5RF Dose Instruction: Take 1 tablet by mouth once daily Rx Instructions: Take 1 tablet by mouth once daily Primary Care Provider: Care Physician,No Primary Referrals: Garrison,Kirill, DO [Med Staff - Active Staff] - As soon as possible Care Physician,No Primary [Primary Care Provider] - Disposition Disposition: Home, Self Care
[2023-06-06] MEDS: Mag Hydrox/Al Hydrox/Simeth 30 ML UDC PO (19:33)
[2023-06-06 20:53] VITALS: BP 125/89; PULSE 70; RESP 15; TEMP 36.6; O2SAT 99
== END 2023-06-06 20:53 | disposition home or self-care (01) ==
PROVIDERS: Emergency Provider Student in an Organized Health Care Education/Training Program; Visit Provider Student in an Organized Health Care Education/Training Program
DX: R10.13 Epigastric pain (principal); Z87.891 Personal history of nicotine dependence; K27.9 Peptic ulcer, site unspecified, unspecified as acute or chronic, without hemorrhage or perforation; J45.909 Unspecified asthma, uncomplicated; Z79.899 Other long term (current) drug therapy; K21.9 Gastro-esophageal reflux disease without esophagitis
CPT/HCPCS: 80053; 83690; 85025; 96374; 99283; A4216; J2405

== ENCOUNTER → 2023-11-16 | Outpatient (CLI) | payer MEDICAID, SELFPAY | END | disposition home or self-care (01) | LOC: SL 20:19 | PROVIDERS: Referring Provider Nurse Practitioner Acute Care; Visit Provider Nurse Practitioner Acute Care | DX: G47.33 Obstructive sleep apnea (adult) (pediatric) (principal) | CPT/HCPCS: 95811 ==

== ENCOUNTER → 2023-12-11 | Outpatient (CLI) | payer MEDICAID, SELFPAY | END | disposition home or self-care (01) | LOC: SL 13:29 | PROVIDERS: Visit Provider Nurse Practitioner Acute Care | DX: Z00.00 Encounter for general adult medical examination without abnormal findings (principal) ==